=== PATIENT | female | born 1985 | race Caucasian/White ===

== ENCOUNTER 2023-04-04 09:59 | Outpatient (CLI) | payer BC, SELFPAY ==
[2023-04-04 10:45] LABS: Basophils Percent Auto 0.4 % (0.2-1.2); Eosinophils Absolute Auto 0.1 K/mm3 (0-0.3); Hematocrit 31.9 % (37.0-47.0); Hemoglobin 10.2 g/dL (12.0-15.0); Immature Granulocyte Absolute 0.09 K/mm3 (0.00-0.031); Immature Granulocyte Percent A 1.1 % (0-0.5); Lymphocytes Absolute Auto 1.15 K/mm3 (0.9-3.2); Lymphocytes Percent Auto 14.3 % (18.3-44.2); Mean Corpuscular Hemoglobin 30.8 pg (26-34); Mean Corpuscular Volume 96.4 fl (80-100); Mean Platelet Volume 9.2 fl (7.4-10.4); Monocytes Absolute Auto 0.4 K/mm3 (0.1-0.6); Monocytes Percent Auto 4.3 % (2.6-8.5); Neutrophils Absolute Auto 6.4 K/mm3 (1.3-6.7); Neutrophils Percent Auto 78.9 % (45.5-73.1); Platelet Count Result 189 k/mm3 (150-375); Red Blood Count 3.31 M/mm3 (4.2-5.4); Red Cell Distribution Width 14.7 % (11.5-14.5); White Blood Count 8.1 K/mm3 (4.5-10.0)
[2023-04-04 10:46] VITALS: BP 128/68; PULSE 79
[2023-04-04 10:47] LABS: Appearance Urine Cloudy (Clear); Bacteria Urine None Seen /hpf; Bilirubin Urine Negative (Negative); Blood Urine Negative (Negative); Color Urine Yellow (Yellow); Glucose Urine UA Negative (Negative); Ketones Urine Negative (Negative); Leukocyte Esterase Ur Negative LEU/UL (NEGATIVE); Nitrate Urine Negative (Negative); Non Pathogenic Casts 0-2; Protein Urine Negative (Negative); RBC Urine 0-2 /hpf (0-2); Specific Grav Ur 1.016 (1.001-1.035); Squamous Epithelial Cell Urine Few /hpf (Few); WBC Urine 0-5 /hpf (0-3); pH Urine 7.5 (5.0-9.0)
[2023-04-04 10:50] LABS: Add Urine Microscopic? YES
[2023-04-04 11:00] LABS: Alanine Aminotransferase 17 U/L (6-35); Albumin Level 3.7 g/dL (3.5-5.1); Alkaline Phosphatase 97 U/L (38-126); Anion Gap 5 mmol/L (8-16); Aspartate Amino Transferase 22 U/L (14-36); Bilirubin,Total 0.4 mg/dL (0.2-1.3); Blood Urea Nitrogen 13 mg/dL (7-17); Calcium 9.5 mg/dL (8.4-10.2); Carbon Dioxide 26 mmol/L (22-30); Chloride 104 mmol/L (98-107); Estimated Glomerular Filt Rate > 60; Glucose 107 mg/dL (65-110); Potassium 3.7 mmol/L (3.4-5.0); Sodium 135 mmol/L (137-145); Uric Acid 5.4 mg/dL (2.5-7.5)
[2023-04-04 11:01] VITALS: BP 128/72; PULSE 80
[2023-04-04 11:16] VITALS: BP 121/74; PULSE 77
[2023-04-04 11:31] VITALS: BP 120/74; PULSE 75
[2023-04-04 11:38] LABS: Total Protein Urine Random 12 mg/dL; Ur Ttl Prot Creatinine Ratio 0.13 mg/mg (0-0.20)
[2023-04-04 12:46] VITALS: BP 128/68; PULSE 81
== END 2023-04-04 11:45 | disposition home or self-care (01) ==
LOC: ANHOBOP 10:14 → ANHLDR 10:16
PROVIDERS: Visit Provider Obstetrics & Gynecology
DX: O13.9 Gestational [pregnancy-induced] hypertension without significant proteinuria, unspecified trimester (principal); Z3A.00 Weeks of gestation of pregnancy not specified
CPT/HCPCS: 36415; 59025; 80053; 81001; 82570; 84156; 84550; 85025; 87086; 99199

== ENCOUNTER 2023-04-25 14:20 | Outpatient (RCR) | payer BC, SELFPAY ==
[2023-04-11 16:10] LABS: Basophils Percent Auto 0.4 % (0.2-1.2); Eosinophils Absolute Auto 0.1 K/mm3 (0-0.3); Eosinophils Percent Auto 0.9 % (0-4.4); Hematocrit 31.2 % (37.0-47.0); Hemoglobin 10.2 g/dL (12.0-15.0); Immature Granulocyte Absolute 0.07 K/mm3 (0.00-0.031); Immature Granulocyte Percent A 0.8 % (0-0.5); Lymphocytes Absolute Auto 1.26 K/mm3 (0.9-3.2); Lymphocytes Percent Auto 14.8 % (18.3-44.2); Mean Corpuscular HGB Conc 32.7 g/dl (32-36); Mean Corpuscular Hemoglobin 30.4 pg (26-34); Mean Corpuscular Volume 93.1 fl (80-100); Monocytes Absolute Auto 0.4 K/mm3 (0.1-0.6); Monocytes Percent Auto 4.8 % (2.6-8.5); Neutrophils Absolute Auto 6.7 K/mm3 (1.3-6.7); Neutrophils Percent Auto 78.3 % (45.5-73.1); Platelet Count Result 187 k/mm3 (150-375); Red Blood Count 3.35 M/mm3 (4.2-5.4); Red Cell Distribution Width 14.5 % (11.5-14.5); White Blood Count 8.5 K/mm3 (4.5-10.0)
[2023-04-11 16:16] LABS: Appearance Urine Clear (Clear); Bacteria Urine None Seen /hpf; Bilirubin Urine Negative (Negative); Blood Urine Negative (Negative); Color Urine Yellow (Yellow); Glucose Urine UA Negative (Negative); Ketones Urine Trace mg/dL (Negative); Leukocyte Esterase Ur Negative LEU/UL (NEGATIVE); Nitrate Urine Negative (Negative); Protein Urine Trace mg/dL (Negative); RBC Urine 0-2 /hpf (0-2); Specific Grav Ur 1.028 (1.001-1.035); Squamous Epithelial Cell Urine Occasional /hpf (Few); WBC Urine 0-5 /hpf (0-3)
[2023-04-11 16:19] LABS: Creatinine Urine 214.6 mg/dL; Total Protein Urine Random 9 mg/dL; Ur Ttl Prot Creatinine Ratio 0.04 mg/mg (0-0.20)
[2023-04-11 16:21] LABS: Add Urine Microscopic? YES; Alanine Aminotransferase 16 U/L (6-35); Albumin Level 3.7 g/dL (3.5-5.1); Alkaline Phosphatase 109 U/L (38-126); Anion Gap 11 mmol/L (8-16); Aspartate Amino Transferase 20 U/L (14-36); Bilirubin,Total 0.4 mg/dL (0.2-1.3); Blood Urea Nitrogen 15 mg/dL (7-17); Calcium 8.9 mg/dL (8.4-10.2); Carbon Dioxide 19 mmol/L (22-30); Chloride 106 mmol/L (98-107); Estimated Glomerular Filt Rate > 60; Glucose 100 mg/dL (65-110); Potassium 3.8 mmol/L (3.4-5.0); Sodium 136 mmol/L (137-145); Uric Acid 4.9 mg/dL (2.5-7.5)
[2023-04-11 17:23] VITALS: BP 129/76; PULSE 90
[2023-04-18 14:47] VITALS: BP 140/77; PULSE 89
[2023-04-25 15:20] VITALS: BP 135/82; PULSE 79
== END 2023-07-10 23:59 | disposition home or self-care (01) ==
LOC: ANHOBOP 14:20
PROVIDERS: Visit Provider Obstetrics & Gynecology
DX: O16.3 Unspecified maternal hypertension, third trimester (principal); Z3A.35 35 weeks gestation of pregnancy; Z3A.36 36 weeks gestation of pregnancy; Z3A.37 37 weeks gestation of pregnancy
CPT/HCPCS: 36415; 59025; 80053; 81001; 82570; 84156; 84550; 85025; 87086

== ENCOUNTER 2023-05-04 05:00 | Inpatient (IN) | payer BC, SELFPAY ==
[2023-05-04] VITALS (124 sets, daily range): BP systolic 138–179; BP diastolic 67–104; PULSE 25–109; RESP 16; TEMP 36.2–36.8; O2SAT 86–100; BMI 39.2
[2023-05-04 06:34] LABS: Basophils Percent Auto 0.2 % (0.2-1.2); Eosinophils Absolute Auto 0.1 K/mm3 (0-0.3); Eosinophils Percent Auto 1.3 % (0-4.4); Hematocrit 29.6 % (37.0-47.0); Hemoglobin 9.7 g/dL (12.0-15.0); Immature Granulocyte Absolute 0.08 K/mm3 (0.00-0.031); Lymphocytes Absolute Auto 1.33 K/mm3 (0.9-3.2); Lymphocytes Percent Auto 16.1 % (18.3-44.2); Mean Corpuscular HGB Conc 32.8 g/dl (32-36); Mean Corpuscular Hemoglobin 30.4 pg (26-34); Mean Corpuscular Volume 92.8 fl (80-100); Mean Platelet Volume 9.2 fl (7.4-10.4); Monocytes Absolute Auto 0.4 K/mm3 (0.1-0.6); Monocytes Percent Auto 4.7 % (2.6-8.5); Neutrophils Absolute Auto 6.3 K/mm3 (1.3-6.7); Neutrophils Percent Auto 76.7 % (45.5-73.1); Platelet Count Result 182 k/mm3 (150-375); Red Blood Count 3.19 M/mm3 (4.2-5.4); White Blood Count 8.3 K/mm3 (4.5-10.0)
[2023-05-04] MEDS: LACTATED RINGERS 1,000 ML 125 ML IV CONT ×2 (06:36→14:43)
[2023-05-04] MEDS: OXYTOCIN 30 UNITS/NS 500 ML 30 UNITS/500 ML BAG IV CONT (06:36)
--- NOTE | 2023-05-04 08:41 | PM.IMHP ---
H&P: HPI History of Present Illness Date/Time: 05/04/23 08:41 Chief Complaint: Here for induction of labor Narrative: 38 y/o at 39 1/7 weeks here desiring induction of labor / TOLAC. She has had a successful vaginal delivery, followed by an LTCS for arrest of labor. CHTN with good bp control on labetalol 100 mg po bid. GBS neg. She feels very strongly that she would like to have trial of labor. We have discussed mode of delivery numerous times, including risks of uterine rupture and associated risks of maternal and infant morbidity and mortality. Also has had a history of LEEP conization of the cervix, and of depression. Ultrasound exam at 35 weeks showed EFW 5#11oz, so current EFW is 7.5 to 8 lbs. Review of Systems Review of Systems: All systems reviewed & are unremarkable except as noted in HPI and below PMFSH Past Medical History Medical History (Updated 05/04/23 @ 08:47 by Romero Carney MD) History of depression Surgical History Surgical History (Updated 05/04/23 @ 08:47 by Romero Carney MD) History of delivery Family History Family History Father Hypertension Pacemaker Mother High cholesterol Grandparent Breast cancer Social History Social History Smoking status: Never smoker Second hand tobacco smoke exposure: No Substance use: never Lack of Transportation: No Lack of Food: Never True Current Housing: I Have Housing Concerned About Future Housing: No Difficulty Paying Gas/Electric Bills: No Difficulty Paying for Meds: No Currently Unemployed: No Education: Bachelor's Degree Difficulty w/ Childcare or Family Care: No Spiritual care concerns: No Meds Home Medications and Allergies Home Medications Medication Instructions Recorded Confirmed Type aspirin 81 mg chewable tablet 81 mg PO DAILY 04/15/23 04/15/23 History ferrous sulfate 325 mg (65 mg 325 mg PO DAILY 04/15/23 04/15/23 History iron) tablet labetalol 200 mg tablet 200 mg PO BID 04/15/23 04/15/23 History vits no.126-ferrous fum 1 tablet PO DAILY 04/15/23 04/15/23 History 28 mg iron-folic acid 800 mcg tablet (Classic ) Allergies Allergy/AdvReac Type Severity Reaction Status Date / Time Penicillins Allergy Mild Hives Verified 04/15/23 12:33 Vital Signs Vital Signs - 24 hr 05/04/23 05:46 05/04/23 07:01 05/04/23 06:30 Temperature 36.6 C Pulse Rate 81 77 Blood Pressure 139/81 140/82 Oxygen Delivery 05/04/23 07:31 05/04/23 08:01 05/04/23 08:39 Temperature Pulse Rate 74 83 81 Blood Pressure 143/85 H 145/83 H 158/87 H Oxygen Delivery 05/04/23 06:08 Temperature Pulse Rate Blood Pressure Oxygen Delivery Room Air Exam Const: Orientation/consciousness: patient oriented x3 Other: Well-developed, well-nourished female in no acute distress. Neck: Thyroid: thyroid normal Lymphatic: no lymphadenopathy noted (in neck, axilla or inguinal nodes) Resp: Effort & Inspection: normal respiratory effort Auscultation: clear to auscultation bilaterally Cardio: Rate: regular rate Rhythm: regular rhythm Heart sounds: S1 normal heart sound present and S2 normal heart sound present GI: Other: ABD: Soft, nontender, nondistended, gravid. NST reactive. TOCO: irregular contractions. No guarding or rebound tenderness. No hepatosplenomegaly. : General: Yes no CVA tenderness Other: Cervix 2/80/-2. AROM with clear fluid. IUPC placed. Vertex. Back/Spine/Pelvis: Back: no CVA tenderness Skin: General skin exam: normal color and no rashes or lesions noted Neuro: General: patient oriented x3 Extrem: Other: Extremities: nontender with no edema Psych: Mental Status: mental status grossly normal Affect: normal affect H&P: Results Labs Labs: Short CBC
--- NOTE | 2023-05-04 10:10 | WPDANESEPP ---
Anes - Eval Pre Procedure Procedure: Labor epidural Date/Time: 05/04/23 10:10 Surgeon: Angelika Preop Diagnosis: Pain during labor Pre Op Diagnosis: iol Patient Data Age: 38 Gender: F Height: 1.65 m Weight: 107 kg Last Vital Signs Temp 36.3 C L 05/04/23 08:39 Pulse 74 05/04/23 10:01 BP 144/85 H 05/04/23 10:01 O2 Del Method Room Air 05/04/23 06:08 Allergies Allergy/AdvReac Type Severity Reaction Status Date / Time Penicillins Allergy Mild Hives Verified 04/15/23 12:33 Home Medications Medication Instructions Recorded Confirmed Type aspirin 81 mg chewable tablet 81 mg PO DAILY 04/15/23 04/15/23 History ferrous sulfate 325 mg (65 mg 325 mg PO DAILY 04/15/23 04/15/23 History iron) tablet labetalol 200 mg tablet 200 mg PO BID 04/15/23 04/15/23 History vits no.126-ferrous fum 1 tablet PO DAILY 04/15/23 04/15/23 History 28 mg iron-folic acid 800 mcg tablet (Classic ) Laboratory Tests 05/04/23 06:26 WBC 8.3 K/mm3 (4.5-10.0) RBC 3.19 L M/mm3 (4.2-5.4) Hgb 9.7 L g/dL (12.0-15.0) Hct 29.6 L % (37.0-47.0) MCV 92.8 fl (80-100) MCH 30.4 pg (26-34) MCHC 32.8 g/dl (32-36) RDW 14.0 % (11.5-14.5) Plt Count 182 k/mm3 (150-375) MPV 9.2 fl (7.4-10.4) Immature Gran % (Auto) 1.0 H % (0-0.5) Neut % (Auto) 76.7 H % (45.5-73.1) Lymph % (Auto) 16.1 L % (18.3-44.2) Ross % (Auto) 4.7 % (2.6-8.5) Eos % (Auto) 1.3 % (0-4.4) Baso % (Auto) 0.2 % (0.2-1.2) Lymph # (Auto) 1.33 K/mm3 (0.9-3.2) Ross # (Auto) 0.4 K/mm3 (0.1-0.6) Eos # (Auto) 0.1 K/mm3 (0-0.3) Baso # (Auto) 0.0 K/mm3 (0.0-0.1) Abs Immat Gran (auto) 0.08 H K/mm3 (0.00-0.031) Absolute Neuts (auto) 6.3 K/mm3 (1.3-6.7) Absolute Nucleated RBC 0.0 K/mm3 (0.0-0.012) Nucleated RBC % 0.0 % (0.0-0.2) RPR Pending Blood Type A Positive Antibody Screen Negative Patient hx anesthesia problems: none Family hx anesthesia problems: none Results Review: All pre-operative results and documents have been reviewed as part of the pre-operative evaluation. [facility] Past Medical History Medical History History of depression Surgical History Surgical History History of delivery Family History Family History Father Hypertension Pacemaker Mother High cholesterol Grandparent Breast cancer Social History Social History Smoking status: Never smoker Second hand tobacco smoke exposure: No Substance use: never Lack of Transportation: No Lack of Food: Never True Current Housing: I Have Housing Concerned About Future Housing: No Difficulty Paying Gas/Electric Bills: No Difficulty Paying for Meds: No Currently Unemployed: No Education: Bachelor's Degree Difficulty w/ Childcare or Family Care: No Spiritual care concerns: No Exam Day of Procedure 05/04/23 10:10 Patient weight: obese Airway: Mallampati scale class II Neurological: alert and oriented
--- NOTE | 2023-05-04 12:11 | PM.OBPNLAB ---
Pain Control Date/time seen: 05/04/23 12:11 Comments: Feeling more contractions. Still wants TOLAC. Pelvic Exam Dilation (cm): 4 Effacement (%): 80 station: -2 Contractions Contraction frequency: 4 Contraction pattern: Regular Status status: Category l Assessment and Plan Pitocin rate (mU/min): 10 Plan: continuous present management
[2023-05-04 14:09] LABS: Rapid Plasma Reagin Non-Reactive (NonReactive)
--- NOTE | 2023-05-04 17:35 | P.PCNOB_ITS ---
OB - Vaginal Delivery Note Procedure Delivery date: 05/04/23 Events: Chronic Hypertension and Previous Delivery Induction method: Per Pitocin Protocol Delivery augmentation: Rupture of Membranes Delivery monitor: External FHT, External Uterine and Internal Uterine Route of delivery: Episiotomy description: None Laceration Description: Perineal - 2nd Degree Delivery repair: vicryl (3-0) Specimen: Yes (cord blood) Quantitative Blood Loss (ml): 420 Anesthesia type: Epidural Disposition: PACU Complications: Other complications (Shoulder dystocia.) Narrative: 38 y/o at 39 1/7 weeks gestation who presented to the hospital for induction of labor / TOLAC. She had a previous delivery and strongly desired a trial of labor. Oxytocin was administered intravenously. Amniotomy was performed with return of clear fluid. She received an epidural for pain control. Her labor progressed and her cervix dilated completely. She pushed with good effort and delivered the infant's head to the perineum. A shoulder dystocia was encountered. Fundal pressure was avoided, as was traction on the head. The posterior shoulder (right) was able to be grasped and rotated clockwise. The anterior shoulder dystocia reduced quickly and the body delivered. The nose and mouth were bulb suctioned. After a delay, the cord was clamped and cut. The infant was handed off the field. Cord blood was collected. The placenta delivered spontaneously and was grossly normal in appearance. The usual 3 vessel cord was noted. A second degree midline perineal laceration was sustained. This was reapproximated using 3 0 Vicryl in the usual layered fashion. Excellent hemostasis resulted as did excellent reapproximation of the normal anatomy. Needle and instrument counts were correct. The patient was taken to recovery room in stable condition. The infant went to the nursery in stable condition. I was present and scrubbed for the entire delivery. [place] [facility] Date of : 05/04/23 Time of : 17:04 Weeks of gestation at delivery: 39 Infant gender: Female Weight (pounds): 8 presentation: vertex position: Right Occiput Anterior Placenta delivery description: Spontaneous and Normal Configuration Cord Vessel Description: 3 Vessels and Delayed Cord Clamping score one minute: 6 score five minutes: 9
[2023-05-04] MEDS: OXYTOCIN 30 UNITS/NS 500 ML 30 UNITS/500 ML BAG 125 UNITS IV CONT (17:36)
--- NOTE | 2023-05-04 17:42 | P.DS_ITS ---
DS: Admitting Diagnosis Discharge Date 05/05/23 Admitting Diagnosis IUP at 39 1/7 weeks Prior , desiring TOLAC Chronic HTN DS: Discharge Diagnosis Discharge Diagnosis (1) , delivered: Code(s): O34.219 - Maternal care for unspecified type scar from previous delivery Status: Acute (2) Chronic hypertension affecting : Code(s): O10.919 - Unspecified pre-existing hypertension complicating , unspecified trimester Status: Acute OB - DS: Summary OB Procedures : None OB Procedures Intrapartum: OB Procedures: : None Peripartum Data Laceration Description: Perineal - 2nd Degree Episiotomy description: None Time Spent with Patient Time attestation: Total time spent providing and/or coordinating discharge services: DS: Data Data Completed and Pending Labs on day of discharge: Labs from last 24 hours 05/04/23 06:26 WBC 8.3 RBC 3.19 L Hgb 9.7 L Hct 29.6 L MCV 92.8 MCH 30.4 MCHC 32.8 RDW 14.0 Plt Count 182 MPV 9.2 Immature Gran % (Auto) 1.0 H Neut % (Auto) 76.7 H Lymph % (Auto) 16.1 L Sunflower % (Auto) 4.7 Eos % (Auto) 1.3 Baso % (Auto) 0.2 Lymph # (Auto) 1.33 Sunflower # (Auto) 0.4 Eos # (Auto) 0.1 Baso # (Auto) 0.0 Abs Immat Gran (auto) 0.08 H Absolute Neuts (auto) 6.3 Absolute Nucleated RBC 0.0 Nucleated RBC % 0.0 RPR Non-reactive Blood Type A Positive Antibody Screen Negative Discharge Plan Discharge Attending physician on discharge: Romero Carney Discharging Clinician: Romero Carney Patient Disposition: Home, Self-Care Activity: pelvic rest Diet: regular Discharge Instructions: Call or return if temperature above 100.4? F, increased abdominal pain, increased vaginal bleeding or any new problems. Stand Alone Forms: General Discharge Information Follow-up/Referrals: Romero Carney MD [Physician] - 6 Weeks Discharge Medications: New sertraline [Zoloft] 50 mg tablet 50 mg PO DAILY Qty: 30 2RF ibuprofen 600 mg tablet 600 mg PO Q6H PRN (Reason: cramps) Qty: 30 0RF Continued labetalol 200 mg tablet 200 mg PO BID ferrous sulfate 325 mg (65 mg iron) Tablet 325 mg PO DAILY Classic 28 mg iron- 800 mcg Tablet 1 tablet PO DAILY Discontinued aspirin 81 mg Tablet,Chewable 81 mg PO DAILY Date of admission: 05/04/23 05:00 Primary Care Provider: UNKNOWN,DOCTOR Admitting Provider: Romero Carney Attending physician on admission: Romero Carney Condition: Stable
[2023-05-04] MEDS: COSYNTROPIN 0.25 MG/ML VIAL IV PUSH (18:49)
[2023-05-04] MEDS: LABETALOL HCL 100 MG TABLET 200 MG PO (18:55)
[2023-05-04] MEDS: miSOPROStol 200 MCG TABLET 800 MCG RECTAL (19:48)
[2023-05-04] MEDS: IBUPROFEN 600 MG TABLET PO (20:02)
--- NOTE | 2023-05-04 20:40 | OBPPTRN ---
Patient transferred to post room #291 via wheelchair. Support person present. Oriented to unit, room, information board, rooming in, admission packet and security measures. Patient verbalizes understanding.
[2023-05-04] MEDS: LABETALOL HCL INJ 100 MG/20 ML VIAL 20 MG IV PUSH (20:43)
[2023-05-04] MEDS: ACETAMINOPHEN 325 MG TABLET 650 MG PO (22:15)
[2023-05-05] MEDS: IBUPROFEN 600 MG TABLET PO (03:30)
[2023-05-05 03:37] VITALS: BP 145/83; PULSE 77
[2023-05-05 05:30] LABS: Hematocrit 29.3 % (37.0-47.0); Hemoglobin 9.5 g/dL (12.0-15.0)
[2023-05-05 08:00] VITALS: BP 153/106; PULSE 75; RESP 20; TEMP 36.9; O2SAT 97
[2023-05-05 08:40] VITALS: PULSE 72
[2023-05-05] MEDS: LABETALOL HCL 100 MG TABLET 200 MG PO (08:40)
[2023-05-05 11:15] VITALS: BP 151/92; PULSE 79; RESP 16; O2SAT 99
[2023-05-05] MEDS: ACETAMINOPHEN 325 MG TABLET 650 MG PO (11:37)
--- NOTE | 2023-05-05 13:02 | PM.OBPNVD ---
OB - PN: Subj Subjective Date/time seen: 05/05/23 13:02 Narrative: Pain OK. Baby requires transfer to [facility], and patient would like to be discharged. OB - PN: Obj Data Labs 05/05/23 03:31 Labs: Laboratory Results - last 24 hr 05/04/23 05/05/23 06:26 03:31 Hgb 9.5 L Hct 29.3 L RPR Non-reactive OB - PN A/P Plan Comments: A: PPD#1, doing well. CHTN with bp a little elevated, but overall stable on labetalol. P: Home to f/u 6 weeks. Exam Psych: Other: AVSS ABD soft, nontender, fundus firm EXT nontender
[2023-05-05 15:31] VITALS: BP 151/91; PULSE 90; RESP 18; O2SAT 100
[2023-05-08 10:59] VITALS: BP 164/94; PULSE 77; RESP 18; TEMP 36.9; O2SAT 99
== END 2023-05-05 15:45 | disposition home or self-care (01) | DRG 807 ==
LOC: ANHLDR 05:10 → ANHOB2 22:15
PROVIDERS: Admitting Provider Obstetrics & Gynecology; Visit Provider Obstetrics & Gynecology
DX: O10.92 Unspecified pre-existing hypertension complicating childbirth (principal); Z37.0 Single live birth; Z3A.39 39 weeks gestation of pregnancy; O34.211 Maternal care for low transverse scar from previous cesarean delivery; O70.1 Second degree perineal laceration during delivery; O66.0 Obstructed labor due to shoulder dystocia
CPT/HCPCS: 36415; 85014; 85018; 85025; 86592; 86850; 86900; 86901; A9270; J0834; J2590; J2795; J7120

== ENCOUNTER 2023-05-07 09:18 | Outpatient (CLI) | payer BC, SELFPAY ==
[2023-05-07] VITALS (29 sets, daily range): BP systolic 145–168; BP diastolic 85–96; PULSE 64–90; O2SAT 92–100
--- NOTE | 2023-05-07 10:43 | WPDANESEPPF ---
Anes - Initial Pre Proc Eval Date/Time: 05/07/23 10:43 Surgeon: Romero Carney MD Pre Op Diagnosis: Spinal Headache Patient Data Age: 38 Gender: F Height: Weight: Last Vital Signs Pulse 77 05/07/23 10:33 BP 164/89 H 05/07/23 10:33 Pulse Ox 98 05/07/23 10:42 Allergies Allergy/AdvReac Type Severity Reaction Status Date / Time Penicillins Allergy Mild Hives Verified 04/15/23 12:33 Home Medications Medication Instructions Recorded Confirmed Type ferrous sulfate 325 mg (65 mg 325 mg PO DAILY 04/15/23 04/15/23 History iron) tablet labetalol 200 mg tablet 200 mg PO BID 04/15/23 04/15/23 History vits no.126-ferrous fum 1 tablet PO DAILY 04/15/23 04/15/23 History 28 mg iron-folic acid 800 mcg tablet (Classic ) ibuprofen 600 mg tablet 600 mg PO Q6H PRN cramps #30 tabs 05/04/23 Rx sertraline 50 mg tablet (Zoloft) 50 mg PO DAILY #30 tabs 05/04/23 Rx Patient hx anesthesia problems: none Family hx anesthesia problems: none Results Review: All pre-operative results and documents have been reviewed as part of the pre-operative evaluation. [facility] Past Medical History Medical History (Updated 05/07/23 @ 10:43 by Marcos Vargas MD) History of depression Post-dural puncture headache Surgical History Surgical History History of delivery Family History Family History Father Hypertension Pacemaker Mother High cholesterol Grandparent Breast cancer Social History Social History Smoking status: Never smoker Second hand tobacco smoke exposure: No Substance use: never Lack of Transportation: No Lack of Food: Never True Current Housing: I Have Housing Concerned About Future Housing: No Difficulty Paying Gas/Electric Bills: No Difficulty Paying for Meds: No Currently Unemployed: No Education: Bachelor's Degree Difficulty w/ Childcare or Family Care: No Spiritual care concerns: No Anes - Eval Final PreProcedure Day of Procedure 05/07/23 10:43 Patient weight: obese Heart: regular rate and rhythm Lungs: clear to auscultation Neurological: alert and oriented and other (classic PDP CARY symptoms after known wet tap) Last oral intake: >/= 8 hours ASA classification: II Emergent: no Anesthetic plan: proceed Anesthesia type and monitoring: regional epidural and standard monitoring Results Review: All pre-operative results and documents have been reviewed as part of the pre-operative evaluation. Informed Consent: The patient's anesthetic plan and its attendant risks and benefits were discussed with the patient/family/POA. Questions were solicited and answers provided to the satisfaction of the patient/family/POA.
--- NOTE | 2023-05-07 10:45 | WPDANESEBPP ---
Anes - Epidural Blood Patch PN Date/Time: 05/07/23 10:45 Consent: I have discussed with the patient/family/POA, the rationale of a lumbar epidural autologous blood patch for the treatment of post-dural puncture headache (spinal headache), including associated potential risks, benefits, complications and side effects. I have also discussed more conservative treatment options such as intravenous hydration, caffeine and non-prescription analgesics. The patient/family/POA, understand(s) and wish(es) to proceed with epidural autologous blood patch as treatment for the patient's post-dural puncture headache. Time-Out: A pre-procedural Time-Out was completed immediately before starting the procedure and confirmed: Patient Identification, Site, Procedure, Patient Position and the Availability of Requisite Equipment. Epidural Insertion Note Patient position: sitting Skin prep: chlorhexidine Needle: 18 gauge Tuohy-Schliff Technique: loss of resistance (1st pass, easy MARIO, cath threaded easily, no csf on aspiration, withdrawn, tip intact) Skin anesthesia: lidocaine 1% (8cc) Observations: tolerated well Complications: none and other (17cc of sterile blood obtained by RN at hand and injected into epidural space after easy access of epidural space and confirmation with catheter. no CSF, blood injected slowly and patient had no pain or pressure symptoms during injection)
--- NOTE | 2023-05-07 11:35 | PC.NURSE ---
1135: RN phoned Dr. Carney to report patient's complaint, blood patch procedure that was done, and blood pressures. RN informed OB that patient had recently taken her Labetalol before coming in today. Orders to discharge patient home with instructions to keep/ make an appointment with the office this week for a blood pressure check.
== END 2023-05-07 11:40 | disposition home or self-care (01) ==
LOC: ANHOBOP 09:22 → ANHOBPP 09:25
PROVIDERS: Visit Provider Obstetrics & Gynecology
DX: T88.59XA Other complications of anesthesia, initial encounter (principal)
CPT/HCPCS: 62273; 99199

== ENCOUNTER 2023-05-08 11:25 | Outpatient (CLI) | payer BC, SELFPAY ==
[2023-05-08 12:14] LABS: Basophils Percent Auto 0.6 % (0.2-1.2); Eosinophils Absolute Auto 0.2 K/mm3 (0-0.3); Eosinophils Percent Auto 2.7 % (0-4.4); Hematocrit 30.2 % (37.0-47.0); Hemoglobin 9.7 g/dL (12.0-15.0); Immature Granulocyte Percent A 1.5 % (0-0.5); Lymphocytes Absolute Auto 1.39 K/mm3 (0.9-3.2); Lymphocytes Percent Auto 20.9 % (18.3-44.2); Mean Corpuscular HGB Conc 32.1 g/dl (32-36); Mean Corpuscular Hemoglobin 30.3 pg (26-34); Mean Corpuscular Volume 94.4 fl (80-100); Mean Platelet Volume 8.6 fl (7.4-10.4); Monocytes Absolute Auto 0.3 K/mm3 (0.1-0.6); Monocytes Percent Auto 4.5 % (2.6-8.5); Neutrophils Absolute Auto 4.6 K/mm3 (1.3-6.7); Neutrophils Percent Auto 69.8 % (45.5-73.1); Platelet Count Result 211 k/mm3 (150-375); Red Cell Distribution Width 14.1 % (11.5-14.5); White Blood Count 6.6 K/mm3 (4.5-10.0)
[2023-05-08 12:15] VITALS: BP 148/90; PULSE 74
[2023-05-08 12:23] LABS: Alanine Aminotransferase 20 U/L (6-35); Albumin Level 3.5 g/dL (3.5-5.1); Alkaline Phosphatase 112 U/L (38-126); Anion Gap 5 mmol/L (8-16); Aspartate Amino Transferase 29 U/L (14-36); Bilirubin,Total 0.3 mg/dL (0.2-1.3); Blood Urea Nitrogen 15 mg/dL (7-17); Calcium 8.7 mg/dL (8.4-10.2); Carbon Dioxide 27 mmol/L (22-30); Chloride 105 mmol/L (98-107); Estimated Glomerular Filt Rate > 60; Glucose 93 mg/dL (65-110); Potassium 3.8 mmol/L (3.4-5.0); Sodium 137 mmol/L (137-145); Uric Acid 5.5 mg/dL (2.5-7.5)
[2023-05-08 12:30] VITALS: BP 151/96; PULSE 77
[2023-05-08 12:45] VITALS: BP 149/100; PULSE 72
[2023-05-08 13:00] VITALS: BP 162/97; PULSE 75
--- NOTE | 2023-05-08 13:05 | PC.NURSE ---
Dr Carney on unit, BP's and labs reviewed. Ok to dc home.
== END 2023-05-08 13:08 | disposition home or self-care (01) ==
LOC: ANHOBOP 11:32 → ANHOBPP 11:55
PROVIDERS: Visit Provider Obstetrics & Gynecology
DX: O13.9 Gestational [pregnancy-induced] hypertension without significant proteinuria, unspecified trimester (principal); Z3A.00 Weeks of gestation of pregnancy not specified
CPT/HCPCS: 36415; 80053; 84550; 85025; 99199